=== PATIENT | female | born 1955 ===

== ENCOUNTER → 2022-10-21 | Outpatient (REF) | payer BC, MEDICARE | LOC: M LABCFH 13:59 | PROVIDERS: ATTEND Physician Assistant | DX: Z12.4 Encounter for screening for malignant neoplasm of cervix (principal) ==

== ENCOUNTER → 2023-11-23 | Outpatient (REF) | payer MEDICARE, BC | LOC: M LAB REF 15:44 | PROVIDERS: ATTEND Physician Assistant | DX: Z12.4 Encounter for screening for malignant neoplasm of cervix (principal) ==